=== PATIENT | female | born 1995 | race American Indian/Alaskan Native ===

== ENCOUNTER 2018-07-24 14:50 | Emergency (ER) | payer SELFPAY ==
--- NOTE | 2018-07-24 16:25 | EDM.PDOC ---
ED HPI GENERAL MEDICAL PROBLEM - General Chief Complaint: Lower Extremity Injury/Pain Stated Complaint: FOOT INJURY Time Seen by Provider: 07/24/18 15:33 Source of Information: Reports: Patient, RN Notes Reviewed - History of Present Illness INITIAL COMMENTS - FREE TEXT/NARRATIVE: 23 year old female with injury to R foot last evening. She states a keg of beer fell unto her R foot working. Pain at rest, much worse with walking, no other injury. Treatments IT APPLICATION DEVELOPMENT MANAGER: Reports: Other (see below) Other Treatments IT APPLICATION DEVELOPMENT MANAGER: ice and tylenol Right Feet Pain Score (Numeric/FACES): 6 - Related Data Allergies Allergy/AdvReac Type Severity Reaction Status Date / Time No Known Allergies Allergy Verified 07/24/18 15:13 Home Meds: Home Meds . [No Known Home Meds] 07/24/18 [History] Past Medical History - Past Surgical History HEENT Surgical History: Reports: Adenoidectomy, Tonsillectomy Social & Family History - Tobacco Use Smoking Status *Q: Current Every Day Smoker Years of Tobacco use: 3 Packs/Tins Daily: 0.1 - Caffeine Use Caffeine Use: Reports: Coffee, Energy Drinks, Soda, Tea - Recreational Drug Use Recreational Drug Use: No Review of Systems - Review of Systems Review Of Systems: See Below Mouth/Throat: Reports: No Symptoms Respiratory: Reports: No Symptoms GI/Abdominal: Denies: Nausea, Vomiting Musculoskeletal: Reports: Foot Pain Skin: Reports: Bruising (2nd toe, R foot) Neurological: Reports: No Symptoms ED EXAM, GENERAL - Physical Exam Exam: See Below General Appearance: Alert, No Apparent Distress Head: Atraumatic Neck: Supple Respiratory/Chest: No Respiratory Distress Extremities: Joint Swelling (mild bruising, swelling R 2nd toe), Other (tender R great and 2nd toe, base of great and 2nd toe, no visible deformity) Course - Vital Signs Last Recorded V/S: Last Vital Signs Temp 98.2 F 07/24/18 15:16 Pulse 92 07/24/18 15:16 Resp 20 07/24/18 15:16 BP 104/86 07/24/18 15:16 Pulse Ox 99 07/24/18 15:16 Departure - Departure Time of Disposition: 16:24 Disposition: Home, Self-Care 01 Condition: Fair Clinical Impression: Contusion, foot Qualifiers: Encounter type: initial encounter Laterality: right Qualified Code(s): S90.31XA - Contusion of right foot, initial encounter - Discharge Information Instructions: Contusion Referrals: PCP,None [Primary Care Provider] - Forms: ED Department Discharge, ED Return to Work/School Form Additional Instructions: Ice packs and elevation as needed for swelling, alternate Tylenol and ibuprofen or Aleve as needed for discomfort, rest foot is much as possible increase activity as tolerated.
--- NOTE | 2018-07-25 15:30 | CR ---
Right foot: Four views of the right foot were obtained. Comparison: No prior foot exam. Small plantar spur is seen. Joint spaces are preserved. No discrete fracture or other bony abnormality is seen. Impression: 1. Small plantar spur. Nothing acute is appreciated on right foot exam. Diagnostic code #2
== END 2018-07-24 16:35 | disposition home or self-care (01) ==
LOC: JD.ED 14:50
DX: S90.31XA Contusion of right foot, initial encounter (principal); F17.210 Nicotine dependence, cigarettes, uncomplicated; W20.8XXA Other cause of strike by thrown, projected or falling object, initial encounter; Y99.0 Civilian activity done for income or pay
CPT/HCPCS: 73630-26-RT; 73630-RT; 99283